=== PATIENT | female | born 1980 | race Two or more races ===

== ENCOUNTER 2020-07-30 06:55 | Emergency (ER) | payer SELFPAY ==
--- NOTE | 2020-07-30 08:00 | NUR ---
NO ANSWER FROM LOBBY
--- NOTE | 2020-07-30 08:09 | NUR ---
NO ANSWER FROM LOBBY
--- NOTE | 2020-07-30 08:36 | NUR ---
PT AMBULATORY TO ROOM, CHANGED INTO GOWM, MONITORS IN PLACE. CALL LIGHT WITHIN REACH
[2020-07-30 08:41] VITALS: BP 108/65
[2020-07-30] MEDS ORDERED: ONDANSETRON 2MG/ML, 2ML ONE (08:45)
[2020-07-30] MEDS ORDERED: MORPHINE SULFATE 4 MG/ML, 1ML ONE (08:45)
--- NOTE | 2020-07-30 08:49 | NUR ---
REPORT TO AYLEEN OLSEN
--- NOTE | 2020-07-30 08:52 | NUR ---
REPORT FROM PETAR, ASSUME CARE OF PT AT THIS TIME. PT ASKED ABOUT PAIN, STATES ONLY A LITTLE RIGHT NOW. PT UPDATED ON POC, INCLUDING IV AND MORPHINE. PT STATES ALLERGIC TO MORPHINE, ALLERGIES UPDATED IN COMPUTER. PT AMBULATORY TO BR TO PROVIDE URINE SPECIMEN.
[2020-07-30 08:53] LABS: BASOPHILS % (AUTO) 1 % (0-1); EOSINOPHILS % (AUTO) 1 % (1-7); LYMPHOCYTES % (AUTO) 15 % (22-44); MD NO; MEAN CORPUSCULAR HEMOGLOBIN 21.5 pg (27.0-34.8); MEAN CORPUSCULAR HGB CONC 30.4 g/dL (32.4-35.8); MEAN PLATELET VOLUME 8.6 fL (7.4-10.4); MONOCYTES % (AUTO) 6 % (2-9); NEUTROPHILS % (AUTO) 78 % (42-75); PLATELET COUNT 323 x10^3/uL (130-400); RED BLOOD COUNT 4.26 x10^6/uL (3.82-5.3)
[2020-07-30 08:57] LABS: CHLORIDE 107 mmol/L (98-107)
[2020-07-30] MEDS ORDERED: MORPHINE SULFATE 4 MG/ML, 1ML IVPush PRN (09:00)
[2020-07-30] MEDS ORDERED: SODIUM CHLORIDE FLUSH 10ML SYR IVF ONE (09:00)
[2020-07-30] MEDS ORDERED: ONDANSETRON 2MG/ML, 2ML IVPush ONE (09:00)
[2020-07-30 09:03] LABS: ALANINE AMINOTRANSFERASE 44 U/L (12-78); ALBUMIN 3.3 g/dL (3.4-5.0); ALKALINE PHOSPHATASE 81 U/L (45-117); ANION GAP 6 mmol/L (5-15); CALCIUM 8.5 mg/dL (8.5-10.1); CREATININE 0.79 mg/dL (0.55-1.02); TOTAL PROTEIN 7.4 g/dL (6.4-8.2)
[2020-07-30 09:20] LABS: MICROSCOPIC AUTO
[2020-07-30 09:22] LABS: BILIRUBIN,TOTAL 0.2 mg/dL (0.2-1.0)
--- NOTE | 2020-07-30 10:34 | NUR ---
Patient given discharge instructions and Rx, they have confirmed that they understand the instructions. Patient ambulatory with steady gait.
== END 2020-07-30 10:34 | disposition home or self-care (01) ==
LOC: ED 09:02
DX: K80.20 Calculus of gallbladder without cholecystitis without obstruction (principal); R10.11 Right upper quadrant pain; R10.13 Epigastric pain; R11.0 Nausea
CPT/HCPCS: 36415; 76700; 80053; 81001; 83690; 85025; 99284